=== PATIENT | female | born 1950 | race Two or more races ===

== ENCOUNTER → 2016-09-16 | Outpatient (CLI) | payer MEDICARE, OTHER ==
[~2016-09-16] VITALS: Ht 167.6 cm; Wt 93.4 kg
[~2016-09-16] MED LIST: ASPI-231 PO; FURO20TA3 PO; LISI2.5T47 PO; PRAV20TA3 PO; SPIR25TA89 PO
== END | disposition home or self-care (01) ==
LOC: Rad HDHVI 09:06
PROVIDERS: ATTEND Internal Medicine Cardiovascular Disease
DX: I10 Essential (primary) hypertension (principal); E78.00 Pure hypercholesterolemia, unspecified; F17.210 Nicotine dependence, cigarettes, uncomplicated; Z95.0 Presence of cardiac pacemaker; Z82.49 Family history of ischemic heart disease and other diseases of the circulatory system
CPT/HCPCS: 78452; 93017; 96374; A9500

== ENCOUNTER → 2016-10-13 | Outpatient (CLI) | payer MEDICARE, OTHER ==
[~2016-10-13] VITALS: Ht 167.6 cm; Wt 92.1 kg
== END | disposition home or self-care (01) ==
LOC: Rad HDHVI 08:44
PROVIDERS: ATTEND Internal Medicine Cardiovascular Disease
DX: I51.7 Cardiomegaly (principal); J44.9 Chronic obstructive pulmonary disease, unspecified
CPT/HCPCS: 93306

== ENCOUNTER → 2016-11-20 | Outpatient (CLI) | payer MEDICARE, OTHER ==
[~2016-11-20] VITALS: Ht 167.6 cm; Wt 87.5 kg
[~2016-11-20] MED LIST changes: +CARV6.2551 PO; +TIOTCAP IN
[2016-11-20 10:30] VITALS: BP 119/59
[2016-11-20 11:05] VITALS: BP 114/70
[2016-11-20 13:08] LABS: Basophils # (auto) 0 uL; Basophils % (auto) 0.2 % (0.0-2.0); CONDITION Y; Eosinophils # (auto) 0.2 uL; Eosinophils % (auto) 2.2 % (0.0-7.0); Hematocrit 45.3 % (36.0-46.0); Hemoglobin 14.9 g/dL (12.2-16.2); Lymphocytes # (auto) 2.3 uL; Mean Corpuscular Hemoglobin 30.1 pg (28.0-32.0); Mean Corpuscular Hgb Conc. 32.9 g/dL (32.0-36.0); Mean Corpuscular Volume 91.4 fL (80.0-100.0); Mean Platelet Volume 9.3 fL (7.4-10.4); Monocytes # (auto) 0.7 uL; Monocytes % (auto) 6.2 % (0.0-12.0); Neutrophils # (auto) 7.6 uL; Neutrophils % (auto) 70.4 % (37.0-80.0); Platelet Count (auto) 289 10^3/uL (140-450); White Blood Cell 10.8 10^3/uL (4.4-10.8)
[2016-11-20 13:25] LABS: BUN/Creatinine Ratio 23.3; Calcium 10.1 mg/dL (8.5-10.1); INR 0.93 (0.9-1.15); Partial Thromboplastin Time 30.5 sec (22.64-33.71); Potassium 4.7 mmol/L (3.5-5.1); Prothrombin Time 10.1 sec (9.37-12.3)
== END | disposition home or self-care (01) ==
LOC: Rad HDHVI 10:11
PROVIDERS: ATTEND Internal Medicine Cardiovascular Disease
DX: Z01.812 Encounter for preprocedural laboratory examination (principal); I25.10 Atherosclerotic heart disease of native coronary artery without angina pectoris; R94.31 Abnormal electrocardiogram [ECG] [EKG]; I10 Essential (primary) hypertension; D64.9 Anemia, unspecified; R79.1 Abnormal coagulation profile; I70.0 Atherosclerosis of aorta; Z95.810 Presence of automatic (implantable) cardiac defibrillator
CPT/HCPCS: 36415; 71020; 80048; 85025; 85610; 85730; 93005; G0463